=== PATIENT | male | born 1955 | race African-American/Black ===

== ENCOUNTER → 2020-04-23 | Outpatient (CLI) | payer OTHER | LOC: CAT 08:12 | PROVIDERS: ATTEND Family Medicine | DX: Z13.6 Encounter for screening for cardiovascular disorders (principal); I25.10 Atherosclerotic heart disease of native coronary artery without angina pectoris; E78.00 Pure hypercholesterolemia, unspecified ==

== ENCOUNTER 2020-09-18 15:53 | Emergency (ER) | payer OTHER ==
[~2020-09-18] VITALS: Ht 172.7 cm; Wt 84.4 kg
--- NOTE | ~2020-09-18 | EMS ---
[place] [address] EMS Patient Care Report Name: ADRI PINZON Room #: PRE Danielle#: [id number] Admission: Attend Phys: Discharge: Date of : 55 Report #: [id number] THIS REPORT FOR: //name// Report Transmitted: 09/18/2020 16:07 EMS Care Summary [place], [place]/[facility] Incident [id number] @ 09/18/2020 14:45 Incident Location [address] [place] [address] Patient ADRI PINZON Male, 65 Years 1955 Patient Address [address] [place] [address] Patient History Other,Hyperlipidemia,Enlarged prostate, Patient Allergies Doxycycline, Patient Medications Pravastatin, Chief Complaint LEFT ARM CHILLS Disposition Transported No Lights/[place] Dispatch Reason Sick Person Transported To [facility] Narrative PT SITTING IN CHAIR IN LIVING ROOM. PT IS ALERT. PT STATES HE HAS HAD A FEVER, ACHES AND WEAKNESS FOR A WEEK. PT STATES HE TESTED POSITIVE FOR COVID A WEEK AGO. PT IS ON HIS 8TH DAY OF FEELING ILL. PT STATES A COUPLE DAYS AGO HE BEGAN HAVING A COLD SENSATION IN HIS LEFT ARM AND LEFT LEG. [place] [address] EMS Patient Care Report Name: ADRI PINZON Room #: PRE Danielle#: [id number] Admission: Attend Phys: Discharge: Date of : 55 Report #: [id number] HIS LEFT UPPER ARM. PT STATES HE HAS BEEN DRINKING WATER AND EATING OK. PT STATES HE HAS BEEN SWEATING A LOT. PT STATES HE HAS BEEN TAKING TYLENOL DAILY. LAST DOSE WAS 0800 THIS MORNING. PT DENIES LOSS OF CONC, CHEST PAIN, RESP DISTRESS, COUGH OR N/V. PT DENIES DIFFICULTY SPEAKING, SWALLOWING OR WEAKNESS ONE SIDE OF HIS BODY. DENIES HEADACHES OR VISION PROBLEMS. PT DID NOT COUGH AT ALL AND SPEAKS EASILY. NO PROBLEMS EN ROUTE. Initial Vitals @15:56P: 72, @15:14P: 73,R: 16,BP: 142/76,Pain: 0/10,GCS: 15,SpO2: 95,Revised Trauma: 12, @15:15P: 70,R: 16,BP: 145/74,Pain: 0/10,GCS: 15,CO: 8,SpO2: 94,Revised Trauma: 12, @15:40P: 72,R: 16,BP: 130/70,Pain: 0/10,GCS: 15,Revised Trauma: 12, @15:25P: 74,R: 14,BP: 122/70,Pain: 0/10,GCS: 15,Temp: 99.8F,SpO2: 96,Revised Trauma: 12, Assessments @15:07MENTAL:Person Oriented,Event Oriented,Time Oriented,Place Oriented,SKIN:HEENT:Head/Face: No Abnormalities,Neck/Airway: No Abnormalities,LUNG SOUNDS:General: No Abnormalities,Left Upper: No Abnormalities,Right Upper: No Abnormalities,Left Lower: No Abnormalities,Right Lower: No Abnormalities,ABDOMEN:General: No Abnormalities,Left Upper: No Abnormalities,Right Upper: No Abnormalities,Left Lower: No Abnormalities,Right Lower: No Abnormalities,PELVIS//GI:No Abnormalities,EXTREMITIES:Left Arm: No Abnormalities,Right Arm: No Abnormalities,Left Leg: No Abnormalities,Right Leg: No Abnormalities,PULSE:NEURO:No Abnormalities, Impression COVID-19 - Confirmed by testing Timeline 14:39,Call Received 14:39,Dispatch Notified 14:45,Dispatched 14:46,En Route 15:05,On Scene 15:06,At Patient 15:14,BP: 142/76 M,PULSE: 73,RR: 16 R,SPO2: 95 Ox,ETCO2: ,BG: ,PAIN: 0,GCS: 15, 15:15,BP: 145/74 M,PULSE: 70,RR: 16 R,SPO2: 94 Ox,ETCO2: ,BG: ,PAIN: 0,GCS: 15, 15:16,Depart Scene 15:25,BP: 122/70 M,PULSE: 74,RR: 14 R,SPO2: 96 Ox,ETCO2: ,BG: ,PAIN: 0,GCS: 15, 15:40,BP: 130/70 M,PULSE: 72,RR: 16 R,SPO2: Ox,ETCO2: ,BG: ,PAIN: 0,GCS: 15, 15:50,At Destination 15:56,BP: / M,PULSE: 72,RR: R,SPO2: Ox,ETCO2: ,BG: ,PAIN: ,GCS: , [facility] [address] [place] [address] EMS Patient Care Report Name: ADRI PINZON Room #: PRE M.R.#: [id number] Admission: Attend Phys: Discharge: Date of : 55 Report #: [id number] 16:10,Call Closed Disclaimer [email or web address] Copyright 2020 [employer] This EMS Care Summary contains data elements from the applicable legal record (which may be displayed differently). It is designed to provide pertinent information for the following purposes: continuity of care, clinical quality, and state data reporting. The complete legal record is available to ED staff and administrators of the receiving hospital in [employer]'s Patient Tracker. All data is provided "as is."
[2020-09-18 16:33] LABS: ABSOLUTE NEUTROPHILS 3.5 thou/uL (1.4-8.2); BASOPHILS 0.4 % (0.0-2.0); HEMATOCRIT 39.5 % (42.0-52.0); HEMOGLOBIN 13.2 gm/dL (14.0-18.0); LYMPHOCYTES 20.5 % (24.0-44.0); MCH 29.6 pg (26.0-34.0); MCHC 33.4 g/dL (28.0-37.0); MCV 88.6 fL (80.0-100.0); MONOCYTES 5.6 % (1.0-8.0); PLATELET COUNT 167 thou/uL (150-400); POLYS 73.5 % (36.0-66.0); RBC 4.46 mil/uL (4.50-6.00); RDW 13.5 % (10.5-14.5); WBC 4.8 thou/uL (4.0-11.0)
[2020-09-18 16:35] LABS: CALCIUM 8.5 mg/dL (8.5-10.1); CREATININE 1.5 mg/dL (0.7-1.3); POTASSIUM 4.2 mmol/L (3.5-5.1)
[2020-09-18 17:58] VITALS: BP 142/76
--- NOTE | 2020-09-19 07:10 | EKG ---
[address] [address] ELECTROCARDIOGRAM REPORT Name: ADRI PINZON [id number] Admission: 09/18/20 Attend Phys: Discharge: 09/18/20 Date of : 55 Report #: [id number] [facility] ED Test Date: 2020-09-18 Test Time: 16:07:17 Pat Name: ADRI PINZON Department: Room: Gender: Dental Intern: : 1955 Requested By: Carlos Bailey Order Number: [id number] MD: Harsh Day Measurements Intervals Rewey Rate: 74 P: 37 OH: 130 QRS: 67 QRSD: 81 T: 18 QT: 364 QTc: 404 Interpretive Statements Sinus rhythm No previous ECG available for comparison Electronically Signed On 09-19-2020 7:10:43 CDT by Harsh Day [email or web address] <ELECTRONICALLY SIGNED> By: Harsh Day MD, [facility] 09/19/20 0710 1607 1607 Harsh Day MD, FACC /EPI
== END 2020-09-18 18:27 | disposition home or self-care (01) ==
LOC: ER 15:53
PROVIDERS: Nurse Practitioner
DX: U07.1 COVID-19 (principal); R50.9 Fever, unspecified; R53.81 Other malaise; E78.5 Hyperlipidemia, unspecified; Z98.890 Other specified postprocedural states; Z88.1 Allergy status to other antibiotic agents

== ENCOUNTER 2020-09-24 12:19 | Inpatient (IN) | payer OTHER ==
[~2020-09-24] VITALS: Ht 172.7 cm; Wt 82.1 kg
[2020-09-24 12:25] VITALS: BP 133/88
[2020-09-24] MEDS ORDERED: TAMSULOSIN HCL0.4 MG PO (12:29)
[2020-09-24] MEDS ORDERED: PRAVACHOL 20 MG20 M1 PO (12:29)
[2020-09-24 12:38] LABS: ABSOLUTE NEUTROPHILS 5.2 thou/uL (1.4-8.2); BASOPHILS 0.4 % (0.0-2.0); EOSINOPHILS 0.9 % (0.0-3.0); HEMATOCRIT 38.2 % (42.0-52.0); HEMOGLOBIN 12.8 gm/dL (14.0-18.0); LYMPHOCYTES 9.3 % (24.0-44.0); MCH 29.8 pg (26.0-34.0); MCHC 33.6 g/dL (28.0-37.0); MCV 88.7 fL (80.0-100.0); MONOCYTES 6.7 % (1.0-8.0); PLATELET COUNT 278 thou/uL (150-400); POLYS 82.7 % (36.0-66.0); RDW 13.1 % (10.5-14.5); WBC 6.3 thou/uL (4.0-11.0)
[2020-09-24 12:52] LABS: ANION GAP 7 mmol/L (7-16); BUN 13 mg/dL (7-18); CALCIUM 8.2 mg/dL (8.5-10.1); CHLORIDE 96 mmol/L (98-107); CO2 28 mmol/L (21-32); CREATININE 1.5 mg/dL (0.7-1.3); GLUCOSE 124 mg/dL (74-106); POTASSIUM 3.8 mmol/L (3.5-5.1); SODIUM 131 mmol/L (136-145)
[2020-09-24 13:00] LABS: ALBUMIN 2.2 g/dL (3.4-5.0); SGOT 151 U/L (15-37); SGPT 116 U/L (16-63); TOTAL BILIRUBIN 0.6 mg/dL (0.2-1.0); TOTAL PROTEIN 6.8 g/dL (6.4-8.2)
[2020-09-24 13:19] LABS: TROPONIN-I <0.06 ng/mL (<0.06)
[2020-09-24 14:07] LABS: BE(vivo) 3.6 mmol/L (-2 to +3); HCO3 26.5 mmol/L (22.0-26.0); PCO2 34.4 mmHg (35.0-45.0); PO2 65.1 mmHg (80.0-100.0); pH 7.504 (7.360-7.450); sO2 94.6 % (92.0-98.0)
--- NOTE | 2020-09-24 15:05 | EKG ---
[place] [address] [facility] [employer] [place] [address] ELECTROCARDIOGRAM REPORT Name: ALBERTAADRI Bowser [id number] Admission: 09/24/20 Attend Phys: Discharge: Date of : 55 Report #: [id number] [facility] ED Test Date: 2020-09-24 Test Time: 12:23:39 Pat Name: ADRI PINZON Department: Room: Gender: M Military Personnel Specialist: TAL : 1955 Requested By: Carlos Bailey Order Number: [id number] MD: Harsh Day Measurements Intervals Boley Rate: 88 P: 37 NH: 127 QRS: 66 QRSD: 83 T: 12 QT: 357 QTc: 432 Interpretive Statements Sinus rhythm Borderline T wave abnormalities Compared to ECG 09/18/2020 16:07:17 T-wave abnormality now present Electronically Signed On 09-24-2020 15:05:01 CDT by Harsh Day [email or web address] <ELECTRONICALLY SIGNED> By: Harsh Day MD, [facility] 09/24/20 1505 1223 1223 Harsh Day MD, FACC /EPI
--- NOTE | 2020-09-24 17:48 | NUR ---
65 year old male who presents to the ED on 09-24-20 via EMS after being diagnosed with Covid 2 weeks prior with complaints of not feeling well. ID NOW is listed as positive and per ED triage assessment the patient is not listed as vaccinated. The patient on a 09-18-20 presentation to the ED he had been tested as positive on 09-11-20 at another facility. At that time the patient discharged home with outpatient follow up. The patient has been admitted with COVID pneumonia and currently on 4 liters of 02. CXR reveals worsening multifocal pneumonia. The ED and MD documentation shows that patient remains A&O x4. The patient lists his Bela Mares as his next of kin at [phone]. The patient is a patient of Dr. David Zuleta. As plan of care and assessments are completed CM will assist if needed for discharge needs.
[2020-09-24 20:41] VITALS: BP 170/86
--- NOTE | 2020-09-24 20:59 | NUR ---
PT DIAPHORETIC. AFEBRILE. BG STABLE. BED LINENS CHANGED. DENIES ANY PAIN. SOA W/ EXERTION. SPO2 >90% ON 7L NC. PT REQUESTED DINNER TRAY. WILL MONITOR FURTHER.
--- NOTE | 2020-09-24 22:17 | NUR ---
PT ATE DINNER AND STATED HE IS FEELING BETTER.
--- NOTE | 2020-09-24 22:18 | NUR ---
INFECTIOUS DISEASE CONSULT CALLED TO DR ROSALIE SHARPE. DR SHARPE WAS INFORMED OF PT STATUS AND CURRENT ANTIBIOTICS. ORDERS RECEIVED.
[2020-09-25 00:09] VITALS: BP 161/83
--- NOTE | 2020-09-25 04:31 | NUR ---
PT BECOMES VERY SOA WITH EVEN MINOR EXERTION. O2 INCREASED FROM 5L NC TO 9-10L NC TO MAINTAIN SPO2 >90%. PT DESATS WITH EXERTION BUT DOES RECOVER WITH REST. RT GAVE PT INCENTIVE SPIROMETER, PER HIS REQUEST. FIRST DOSE REMDESIVIR GIVEN TONIGHT, PER DR SHARPE ORDER. AFEBRILE. VOIDS PER URINAL. GOOD URINE OUTPUT. PT SLEPT MOST OF THE NIGHT. WILL CONTINUE TO MONITOR CLOSELY. PT IS STILL IN ER, WAITING FOR INPATIENT BED.
--- NOTE | 2020-09-25 06:04 | NUR ---
RT TITRATED O2 DOWN TO 7L NC.
[2020-09-25 06:08] LABS: BASOPHILS 0.3 % (0.0-2.0); HEMATOCRIT 39.5 % (42.0-52.0); HEMOGLOBIN 13.4 gm/dL (14.0-18.0); LYMPHOCYTES 7.9 % (24.0-44.0); MCHC 33.8 g/dL (28.0-37.0); MCV 88.7 fL (80.0-100.0); MONOCYTES 5.5 % (1.0-8.0); PLATELET COUNT 227 thou/uL (150-400); POLYS 86.3 % (36.0-66.0); RBC 4.45 mil/uL (4.50-6.00); RDW 13.3 % (10.5-14.5); WBC 5.7 thou/uL (4.0-11.0)
[2020-09-25 06:34] LABS: ALBUMIN 2.1 g/dL (3.4-5.0); CALCIUM 8.2 mg/dL (8.5-10.1); CREATININE 1.3 mg/dL (0.7-1.3); DIRECT BILIRUBIN 0.2 mg/dL (<0.1-0.2); MAGNESIUM 2.5 mg/dL (1.8-2.4); PHOSPHORUS 2.7 mg/dL (2.5-4.9); POTASSIUM 4.2 mmol/L (3.5-5.1); TOTAL BILIRUBIN 0.3 mg/dL (0.2-1.0); TOTAL PROTEIN 6.9 g/dL (6.4-8.2)
--- NOTE | 2020-09-25 07:34 | NUR ---
REPORT CALLED TO CHANEL ON 3. PT READY FOR TRANSPORT UP TO UNIT.
[2020-09-25 08:15] VITALS: BP 151/80
[2020-09-25] MEDS ORDERED: ACIDOPHILUS1 EAC1 PO (08:54)
[2020-09-25 11:23] VITALS: BP 154/84
[2020-09-25 15:20] LABS: FIBRINOGEN 509 mg/dL (201-437); INR 1.16; PROTIME 12.6 Seconds (10.5-12.1)
[2020-09-25 15:21] LABS: D-DIMER > 35.20 ug/mLFEU (0.19-0.50)
--- NOTE | 2020-09-25 15:23 | NUR ---
INITIAL ASSESSMENT: Received consult. SW reviewed chart and spoke with nursing and attending physician. Pt was admitted from home due to COVID. Pt has not received a COVID vaccine. Pt is afebrile and requiring 7L of O2. Pt is on IV abx, IV steroids and Remdesivir. Actemra ordered. SW spoke with pt via phone. Introduced role of SW. Pt is alert/orientated x 4. Pt reports he lives at home with his . Prior to admissions, pt was independent with ADLS. No use of DME. No hx of HH or post-acute placement. Pt's PCP is Dr. David Zuleta. Pt's goal is to return home when medically stable. SW is following to assist as needed with discharge planning.
[2020-09-25 15:41] VITALS: BP 143/75
[2020-09-25 16:58] LABS: BE(vivo) -0.2 mmol/L (-2 to +3); HCO3 23.6 mmol/L (22.0-26.0); PCO2 36.1 mmHg (35.0-45.0); PO2 86.2 mmHg (80.0-100.0); pH 7.434 (7.360-7.450); sO2 96.8 % (92.0-98.0)
--- NOTE | 2020-09-25 17:07 | NUR ---
assumed care of pt on arrival to unit at approx 0930. pt aox4 no acute distress. on 7L NC. later in afternoon while ambulating with physical therapy pt because diaphoretic, drowsy, O2 dropped to 65%, requiring placed on NRB and high flow cannula. BP 150/90 when returned to bed. blood sugar 180. physician notified to evaluate patient at bedside. CT Chest on hold pending ABG results. lovenox ordered and given. pulm notified of consult. patient reports feeling better now. will cont to monitor closely. uneventful on telemetry.
[2020-09-25 20:04] VITALS: BP 131/92
[2020-09-25 23:59] VITALS: BP 131/86
[2020-09-26 03:01] LABS: ABSOLUTE NEUTROPHILS 9.4 thou/uL (1.4-8.2); BASOPHILS 0.1 % (0.0-2.0); HEMATOCRIT 37.9 % (42.0-52.0); HEMOGLOBIN 12.9 gm/dL (14.0-18.0); LYMPHOCYTES 5.7 % (24.0-44.0); MCHC 33.9 g/dL (28.0-37.0); MCV 88.5 fL (80.0-100.0); MONOCYTES 5.9 % (1.0-8.0); PLATELET COUNT 226 thou/uL (150-400); POLYS 88.3 % (36.0-66.0); RBC 4.28 mil/uL (4.50-6.00); RDW 13.3 % (10.5-14.5); WBC 10.7 thou/uL (4.0-11.0)
[2020-09-26 05:08] VITALS: BP 133/93
[2020-09-26 05:22] LABS: ALBUMIN 1.9 g/dL (3.4-5.0); CALCIUM 7.5 mg/dL (8.5-10.1); CREATININE 1.2 mg/dL (0.7-1.3); POTASSIUM 4.6 mmol/L (3.5-5.1); TOTAL BILIRUBIN 0.2 mg/dL (0.2-1.0); TOTAL PROTEIN 5.9 g/dL (6.4-8.2)
[2020-09-26 07:10] VITALS: BP 144/88
[2020-09-26] MEDS ORDERED: OMEGA 3 1,0001 EACH PO (08:31)
[2020-09-26 10:08] LABS: HIV ANTIBODY Non Reactive (Non Reactive)
[2020-09-26 10:57] VITALS: BP 120/75
--- NOTE | 2020-09-26 14:20 | NUR ---
SW reviewed chart and spoke with nursing and attending physician. Pt remains in Enhanced Isolation due to COVID. Pt is afebrile and requiring 10L of O2. Pt is on IV abx and IV steroids. Pt is on Remdsivir. PT on hold until pt is able to participate. SW is following to assist as needed with discharge planning.
[2020-09-26 15:24] VITALS: BP 136/79
[2020-09-26 20:15] VITALS: BP 143/94
[2020-09-27 05:00] VITALS: BP 139/81
--- NOTE | 2020-09-27 05:37 | NUR ---
Patient making slow progress towards outcome goals. Vital signs and rhythm stable. Requires 8L oxygen per high flow cannula to maintain sats at 95-96%. Desats with any activity. Gait steady.
[2020-09-27 07:43] LABS: ALBUMIN 2.1 g/dL (3.4-5.0); CALCIUM 8.1 mg/dL (8.5-10.1); CREATININE 1.1 mg/dL (0.7-1.3); DIRECT BILIRUBIN 0.1 mg/dL (<0.1-0.2); PHOSPHORUS 2.7 mg/dL (2.5-4.9); POTASSIUM 4.4 mmol/L (3.5-5.1); TOTAL BILIRUBIN 0.4 mg/dL (0.2-1.0); TOTAL PROTEIN 5.7 g/dL (6.4-8.2)
[2020-09-27 12:04] VITALS: BP 147/83
--- NOTE | 2020-09-27 14:49 | NUR ---
ANTONIO reviewed chart and spoke with nursing and attending physician. Pt remains in Enhanced Isolation due to COVID. Pt is afebrile and is on 9L of O2. Pt is on IV abx and IV steroids. Pt is completing course of Remdesivir. ANTONIO spoke with pt via phone. Pt stated that he was able to work with therapy earlier today and has some exercises that he will do in his room. SW offered to contact pt's to provide update. Pt agreeable. ANTONIO spoke with pt's , Bela, via phone. Lengthy discussion regarding pt's current condition. All questions answered. Bela states she also has COVID and has been isolating at home. Pt and spouse have lost six friends over the past two weeks, due to COVID. Pt's states that their plan is for pt to return home when he is medically stable for discharge. Pt will likely need home O2. Contact info provided to pt's . ANTONIO is following to assist as needed with discharge planning.
[2020-09-27 16:17] VITALS: BP 141/88
[2020-09-27 20:20] VITALS: BP 160/94
[2020-09-28 04:45] VITALS: BP 149/82
--- NOTE | 2020-09-28 06:29 | NUR ---
Patient making slow prgress towards outcome goals. Oxygen at 9L hiflow, sats 95 to 96%, desaturates and short of air with activity. Up x 1 to bathroom. Refused Docusate, multiple bowel movements during the day and 2 tonight. Oral fluid intake excellent IVFluids decreased to TKO. Cough more productive. Does IS while awake up to 1000 cc. Vital signs and rhythm stable.
[2020-09-28 07:19] VITALS: BP 143/91
[2020-09-28 08:47] LABS: ALBUMIN 2.3 g/dL (3.4-5.0); ANION GAP 8 mmol/L (7-16); BUN 19 mg/dL (7-18); CHLORIDE 103 mmol/L (98-107); CO2 28 mmol/L (21-32); CREATININE 1.2 mg/dL (0.7-1.3); DIRECT BILIRUBIN < 0.1 mg/dL (<0.1-0.2); GLUCOSE 126 mg/dL (74-106); PHOSPHORUS 3.9 mg/dL (2.6-4.7); POTASSIUM 4.7 mmol/L (3.5-5.1); SGOT 79 U/L (15-37); SGPT 165 U/L (16-63); SODIUM 139 mmol/L (136-145); TOTAL BILIRUBIN 0.4 mg/dL (0.2-1.0); TOTAL PROTEIN 6.1 g/dL (6.4-8.2)
[2020-09-28 09:03] LABS: T-SPOT.TB Negative
[2020-09-28 11:17] VITALS: BP 145/97
--- NOTE | 2020-09-28 14:54 | NUR ---
SW reviewed chart and spoke with nursing and attending physician. Pt remains in Enhanced Isolation due to COVID. Pt is afebrile and on 9L of O2. Pt is on IV abx and IV steroids. Pt to complete course of Remdesivir. No weekend discharge planned. Pt will need rest/exercise oximetry completed to determine home O2 needs. Pt may also need HH services. ANTONIO is following to assist as needed with discharge planning.
[2020-09-28 15:16] VITALS: BP 124/77
[2020-09-28 20:50] VITALS: BP 156/93
--- NOTE | 2020-09-29 03:33 | NUR ---
NO SIGNIFICANT EVENTS SO FAR DURING THE NIGHT. PT IS VERY PLEASANT AND COOPERATIVE. SPO2 >92% ON 7L HFNC. PT IS UP AD ANDRES AROUND THE ROOM WITH STEADY GAIT. HE IS VERY MOTIVATED TO GET BETTER AND DOES LIGHT STRENGTHENING EXERCISES IN THE ROOM WHEN AWAKE. HE DENIES ANY SIGNFICANT SOA. SR, SB ON TELE. PT HAS BEEN SLEEPING MOST OF THE NIGHT. PROGRESSING TOWARD POC GOALS. WILL MONITOR FURTHER.
[2020-09-29 04:59] VITALS: BP 122/83
[2020-09-29 07:21] VITALS: BP 117/79
[2020-09-29 11:12] VITALS: BP 106/72
[2020-09-29 15:24] VITALS: BP 117/82
[2020-09-29 19:50] VITALS: BP 139/91
[2020-09-30 04:59] LABS: ABSOLUTE NEUTROPHILS 11.2 thou/uL (1.4-8.2); BASOPHILS 0.1 % (0.0-2.0); EOSINOPHILS 0.1 % (0.0-3.0); HEMATOCRIT 38.2 % (42.0-52.0); HEMOGLOBIN 12.9 gm/dL (14.0-18.0); LYMPHOCYTES 7.4 % (24.0-44.0); MCH 29.6 pg (26.0-34.0); MCHC 33.8 g/dL (28.0-37.0); MCV 87.5 fL (80.0-100.0); MONOCYTES 7.8 % (1.0-8.0); PLATELET COUNT 260 thou/uL (150-400); POLYS 84.6 % (36.0-66.0); RBC 4.37 mil/uL (4.50-6.00); RDW 13.1 % (10.5-14.5); WBC 13.3 thou/uL (4.0-11.0)
[2020-09-30 05:21] VITALS: BP 120/77
[2020-09-30 05:49] LABS: ALBUMIN 2.2 g/dL (3.4-5.0); CALCIUM 8.5 mg/dL (8.5-10.1); CREATININE 1.2 mg/dL (0.7-1.3); POTASSIUM 4.4 mmol/L (3.5-5.1); TOTAL BILIRUBIN 0.3 mg/dL (0.2-1.0); TOTAL PROTEIN 5.8 g/dL (6.4-8.2)
--- NOTE | 2020-09-30 06:42 | NUR ---
Pt. stated he slept well during the night. Up ad kaitlin in room with steady gait. O2 at 2L/NC , verbalized breathing is a lot better than it was before. Cont. on enhanced precaution,afebrile. Making progress towards care plan goals.
[2020-09-30 08:00] VITALS: BP 119/80
[2020-09-30 12:38] VITALS: BP 107/64
[2020-09-30 16:00] VITALS: BP 125/79
--- NOTE | 2020-09-30 17:02 | NUR ---
RN ASSUMED PT'S CARE AT 0700AM, PT IS A&OX4, PT IS ON O2 2L/MIN/NC, PT IS CONTINUING IV ABX AND TREAT COVID MEDICATIONS, PT 'S SOB , FEVER AND WEAKNESS HAVE IMPROVED, PT CAN GET UP TO BATHROOM WITHOUT ASSIST, PT MAY DC TO HOME TOMORROW.
[2020-09-30 19:47] VITALS: BP 132/81
--- NOTE | 2020-10-01 05:22 | NUR ---
Pt. stated he slept well during the night. Tolerating room air well with no respiratory distress.He has been using his IS .Cont. on enhanced precaution, afebrile. Up ad kaitlin in room with steady gait. Denies any concern at this time. Progressing towards discharge goals.
[2020-10-01 05:38] VITALS: BP 131/84
[2020-10-01 07:29] VITALS: BP 121/86
[2020-10-01 11:41] VITALS: BP 120/69
[2020-10-01] MEDS ORDERED: MELATONIN5 M1 PO (12:01)
[2020-10-01] MEDS ORDERED: CEFUROXIME500 MG PO (12:01)
[2020-10-01] MEDS ORDERED: VENTOLIN HFA INH8 GM INH (12:01)
[2020-10-01] MEDS ORDERED: PREDNISONE 20 M20 M1 PO (12:01)
[2020-10-01] MEDS ORDERED: VITAMIN B-1100 M2 PO (12:01)
[2020-10-01] MEDS ORDERED: ZINC SULFATE50 MG PO (12:01)
[2020-10-01] MEDS ORDERED: ELIQUIS5 MG PO (12:01)
[2020-10-01] MEDS ORDERED: CENTRUM SILVER1 EAC2 PO (12:01)
[2020-10-01 12:10] VITALS: BP 120/69
--- NOTE | 2020-10-01 12:25 | NUR ---
DISCHARGE NOTE: SW reviewed chart and spoke with nursing and attending physician. Pt remains in Enhanced Isolation due to COVID. Pt is medically stable for discharge home today. Rest/exercise oximetry completed. Pt does not need home O2. SW spoke with pt via phone to discuss discharge plan. Pt states he feels ready to discharge home. Pt denies having HH services arranged. Pt's family will provide transportation home when pt is discharged. No SW needs identified at this time. SW is available to assist should needs arise.
== END 2020-10-01 13:10 | disposition home or self-care (01) | DRG 871 ==
LOC: ER 12:19 → EROBS 16:41 → 3W 16:41
PROVIDERS: Emergency Medicine; Nurse Practitioner; Specialist; ADMIT Internal Medicine; ATTEND Internal Medicine
PROC: XW033E5 Introduction of Remdesivir Anti-infective into Peripheral Vein, Percutaneous Approach, New Technology Group 5 (ICD-10-PCS; 2020-09-24)
PROC: XW033H5 Introduction of Tocilizumab into Peripheral Vein, Percutaneous Approach, New Technology Group 5 (ICD-10-PCS; 2020-09-25)
PROC: 5A0945A Assistance with Respiratory Ventilation, 24-96 Consecutive Hours, High Flow/Velocity Cannula (ICD-10-PCS; principal; 2020-09-26)
DX: A41.9 Sepsis, unspecified organism (principal); U07.1 COVID-19; J12.82 Pneumonia due to coronavirus disease 2019; J96.01 Acute respiratory failure with hypoxia; N17.0 Acute kidney failure with tubular necrosis; J15.9 Unspecified bacterial pneumonia; I26.99 Other pulmonary embolism without acute cor pulmonale; D68.59 Other primary thrombophilia; K75.9 Inflammatory liver disease, unspecified; R65.20 Severe sepsis without septic shock; E78.5 Hyperlipidemia, unspecified; N40.0 Benign prostatic hyperplasia without lower urinary tract symptoms; Z96.651 Presence of right artificial knee joint; Z79.899 Other long term (current) drug therapy; Z90.49 Acquired absence of other specified parts of digestive tract; Z88.1 Allergy status to other antibiotic agents
CPT/HCPCS: 10879

== ENCOUNTER → 2020-11-06 | Outpatient (CLI) | payer OTHER ==
[~2020-11-06] MED LIST: ACIDOPHILUS1 EAC1 PO; CEFUROXIME500 MG PO; CENTRUM SILVER1 EAC2 PO; ELIQUIS5 MG PO; MELATONIN5 M1 PO; OMEGA 3 1,0001 EACH PO; PRAVACHOL 20 MG20 M1 PO; PREDNISONE 20 M20 M1 PO; TAMSULOSIN HCL0.4 MG PO; VENTOLIN HFA INH8 GM INH; VITAMIN B-1100 M2 PO; ZINC SULFATE50 MG PO
[2020-11-06 15:41] LABS: CALCIUM 9.5 mg/dL (8.5-10.1); CREATININE 1.3 mg/dL (0.7-1.3); POTASSIUM 4.6 mmol/L (3.5-5.1)
== END ==
LOC: LAB 12:09 → RAD 12:09
PROVIDERS: ATTEND Internal Medicine Pulmonary Disease
DX: U07.1 COVID-19 (principal); J12.82 Pneumonia due to coronavirus disease 2019; R91.8 Other nonspecific abnormal finding of lung field; N28.89 Other specified disorders of kidney and ureter; R06.02 Shortness of breath; I26.02 Saddle embolus of pulmonary artery with acute cor pulmonale

== ENCOUNTER → 2021-01-15 | Outpatient (CLI) | payer OTHER ==
--- NOTE | 2021-02-13 13:38 | PFR/MVV ---
[facility] [place] [address] PULMONARY FUNCTION MVV/REPORT Name: ADRI PINZON Room #: [facility]#: [id number] Admission: 01/15/21 Attend Phys: Adolfo Cheema MD Discharge: Date of : 55 Report #: [id number] THIS REPORT FOR: //name// >> SPIROMETRY: (BTPS) Height: 68 in cm Weight: 187 lbs kg Exam Date: 01/15/21 PRE-RX POST-RX PRED BEST %PRED BEST %PRED %CHG FVC LITERS . 4.20 . 3.26 . 78 . 3.58 . 85 . 10 FEV1 LITERS . 2.92 . 2.77 . 95 . 3.09 . 106 . 12 FEV1/FVC % . 70 . 85 . 121 . 86 . 123 . 1 TBS29-75% L/Sec . 2.78 . 3.65 . 131 . 4.30 . 154 . 18 PEF L/SEC . 7.96 . 7.10 . 89 . 6.16 . 77 . -13 FEF50/FIF50 UNITLESS . 3.91 . 5.20 . 133 . 5.32 . 136 . 2 MVV L/Min . 127 . . f 1/Min . . . >> LUNG VOLUMES: (BTPS) PRE-RX POST-RX PRED AVG %PRED AVG %PRED %CHG VC Liters . 4.20 . 3.89 . 93 . . . TLC Liters . 6.11 . 4.65 . 76 . . . RV Liters . 2.32 . 0.76 . 33 . . . RV/TLC % . 39 . 16 . 42 . . . FRC PL Liters . 3.34 . 1.36 . 41 . . . FRC N2 Liters . 3.34 . . . . . ERV Liters . 1.43 . 0.66 . 46 . . . IC Liters . 2.86 . 3.29 . 115 . . . >> DIFFUSION: DLCO ml/Min/mmHg . 22.1 . 27.5 . 124 . . . DL Louis ml/Min/mmHg . 22.1 . 27.5 . 124 . . . DLCO/VA ml/Min/mmHg . 3.66 . 5.39 . 147 . . . VA Liters . 6.74 . 5.10 . 76 . . . COMMENTS: COMMENTS: >> RESISTANCE: [facility] [address] [place] [address] PULMONARY FUNCTION MVV/REPORT Name: ADRI PINZON Room #: [facility]#: [id number] Admission: 01/15/21 Attend Phys: Adolfo Cheema MD Discharge: Date of : 55 Report #: [id number] PRE-RX PRED AVG %PRED Raw Total cmH20/L/Sec . . 5.82 . Raw Insp cmH20/L/Sec . . 3.71 . Raw Exp cmH20/L/Sec . . 4.41 . Raw cmH20/L/Sec . 1.37 . 4.99 . 364 Gaw L/Sec/cmH20 . 0.801 . 0.200 . 25 sRaw cmH20 Sec . 4.57 . 11.72 . 256 sGaw l/cmH20 Sec . 0.219 . 0.085 . 39 Vtq Liters . . 2.35 . # = OUTSIDE 95% CONFIDENCE INTERVAL CALIBRATION: PRED: 3.00 ACTUAL: EXP 3.01 INSP 3.02 [facility]-OL10-06 [facility]-05 N-1804-4 >> INTERPRETATION/IMPRESSION: DATE OF SERVICE: 01/15/2021 PULMONARY FUNCTION STUDIES SPIROMETRY: FEV1 is 2.77 liters (95% predicted), FVC is 3.26 liters (78% predicted), FEV1/FVC ratio is 85%. There is a significant response to bronchodilator therapy. FEV1 increased to 3.09 liters (12% change), FVC increased to 3.58 liters (10% change). LUNG VOLUMES: Total lung capacity is 4.65 liters (76% predicted). RV is 0.76 liters (33% predicted), diffusing capacity is 124%. IMPRESSION: Pulmonary function studies are essentially normal. There is no obstructive airflow defect. Lung volumes are normal. Diffusing capacity is normal. There is a significant response to bronchodilator therapy. <ELECTRONICALLY SIGNED> By: Mat Summers MD 02/13/21 1338 Mat Summers MD /nt
== END ==
LOC: PUL 07:57
PROVIDERS: ATTEND Internal Medicine Pulmonary Disease
DX: R06.02 Shortness of breath (principal); J12.82 Pneumonia due to coronavirus disease 2019; I26.02 Saddle embolus of pulmonary artery with acute cor pulmonale; R91.8 Other nonspecific abnormal finding of lung field; Z20.822 Contact with and (suspected) exposure to COVID-19